=== PATIENT | female | born 1995 | race Caucasian/White ===

== ENCOUNTER → 2017-07-25 | Day surgery (SDC) | payer OTHER ==
[~2017-07-25] MED LIST: FENTANYL CITRATE/PF 100MCG/2 ML INJ ONE; LACTATED RINGER'S 1,000 ML ONE; LIDOCAINE HCL 2% LOCAL INJ 5 ML SDV VIAL INJ ONE; MIDAZOLAM HCL 2 MG/2 ML VIAL ONE; PROPOFOL IV EMULSION 10 MG/ML 20 ML VIAL ONE
--- NOTE | 2017-07-25 14:13 | Operative Report ---
DATE OF PROCEDURE: July 25, 2017 REFERRING PHYSICIAN: Dr. Azul De Jesus PROCEDURE PERFORMED: Esophagogastroduodenoscopy with biopsies. INDICATIONS FOR EGD: Acid reflux. MEDICATION: Patient was done under MAC. Please see anesthesiologist's note. PROCEDURE: With the patient in the left lateral decubitus position, the flexible fiberoptic Olympus gastroscope was introduced into the esophagus under direct visualization without any difficulty. There was some diffuse erythema noted in the distal esophagus. The scope was then advanced with ease into the stomach. Mucosa overlying the antrum and the body revealed some diffuse, intense erythema and moderate edema, and biopsies were obtained and sent to stain for H. pylori. Pylorus was of normal contour and shape. It was intubated with ease, and the scope was advanced all the way to the 2nd portion of the duodenum. The scope was then withdrawn slowly. Mucosa overlying the proximal 2nd portion and the duodenal bulb appeared to be within normal limits. The scope was then withdrawn back into the stomach and retroflexed. Mucosa overlying the fundus and the cardia appeared to be within normal limits. The scope was then straightened out. The stomach was decompressed. Scope was subsequently withdrawn. Patient tolerated the procedure well. IMPRESSION 1. Distal esophagitis. 2. Gastritis, biopsied. Biopsies sent to stain for H. pylori. PLAN: Follow up histology. Initiate Protonix 40 mg 1 p.o. q.a.m. a.c. Job#: [id number] MH cc:AZUL DE JESUS MD
== END | disposition home or self-care (01) ==
LOC: OR 12:55
PROVIDERS: ATTEND Internal Medicine Gastroenterology
DX: K21.9 Gastro-esophageal reflux disease without esophagitis (principal); K29.70 Gastritis, unspecified, without bleeding; K20.9 Esophagitis, unspecified; K59.00 Constipation, unspecified; F84.0 Autistic disorder; N39.0 Urinary tract infection, site not specified; Z83.71 Family history of colonic polyps
CPT/HCPCS: 43239; 81025; J2001; J2250; J7120